=== PATIENT | male | born 1930 | race Caucasian/White ===

== ENCOUNTER 2019-04-15 10:15 | Inpatient (IN) ==
[2019-04-15] MEDS ORDERED: methylPREDNISolone 125 MG/2 ML VIAL IVP ONE (10:26)
[2019-04-15] MEDS ORDERED: 0.9 % Sodium Chloride 1,000 ML IVC ONE (10:26)
[2019-04-15] MEDS ORDERED: Ondansetron 4 MG/2 ML VIAL IVP ONE (10:26)
[2019-04-15] MEDS ORDERED: Pantoprazole 40 MG VIAL IVP ONE (10:26)
[2019-04-15 10:53] LABS: Prothrombin Time 11.3 Seconds (9.4-12.1)
[2019-04-15 10:59] LABS: Activated Partial Thrombo Time 34.7 Seconds (26.0-36.0)
[2019-04-15 11:02] LABS: Basophils # 0.1 K/mcL (0.0-0.2); Basophils % 0.3 %; Eosinophils # 0.1 K/mcL (0.0-0.6); Eosinophils % 0.7 %; Hematocrit 38.1 % (37.5-50.1); Immature Granulocytes % 0.3 % (0-4); Lymphocytes # 1.4 K/mcL (0.6-4.6); Lymphocytes % 7.9 %; Mean Corpuscular HGB Conc 31.5 g/dL (31.6-35.5); Mean Corpuscular Hemoglobin 30.5 pg (28.0-33.3); Mean Corpuscular Volume 96.7 fL (83.0-100.0); Mean Platelet Volume 10.9 fL (9.4-12.4); Monocytes # 1.2 K/mcL (0.0-1.3); Monocytes % 6.8 %; Neutrophils # 14.8 K/mcL (1.6-8.9); Platelet Count 213 K/mcL (140-400); Red Blood Count 3.94 M/mcL (4.19-5.50); Red Cell Distribution Width 16.5 % (11.5-14.5); White Blood Count 17.6 K/mcL (4.3-11.1)
[2019-04-15 11:07] LABS: Bilirubin,Urine Negative (Negative); Blood,Urine Trace (Negative); Clarity,Urine Cloudy (Clear); Color,Urine Yellow (Yellow); Glucose,Urine (UA) Normal (Normal); Ketones,Urine Negative (Negative); Leukocyte Esterase,Urine Large (Negative); Nitrite,Urine Negative (Negative); Protein,Urine 30 mg/dL (Neg-Trace); Specific Gravity,Urine 1.019 (1.010-1.025); Urobilinogen,Urine Normal (Normal)
[2019-04-15 11:13] LABS: Albumin 3.4 g/dL (3.5-5.7); Bilirubin,Direct 0.2 mg/dL (0.0-0.2); Bilirubin,Indirect 0.2 mg/dL (0.0-1.0); Bilirubin,Total 0.4 mg/dL (0.3-1.0); Calcium 9.6 mg/dL (8.6-10.3); Globulin 3.5 g/dL (2.4-3.5); Potassium 4.6 mEq/L (3.5-5.1); Total Protein 6.9 g/dL (6.4-8.9)
[2019-04-15 11:14] LABS: Troponin I 0.03 ng/mL (< 0.04)
[2019-04-15 11:27] LABS: Squamous Epithelial Cell,Urine Few per lpf (None-Few); WBC,Urine 30-50 per hpf (0-3)
[2019-04-15] MEDS ORDERED: cefTRIAXone 1,000 MG in Water for inj. (sterile) 10 ML IVP ONE (11:37)
[2019-04-15] MEDS ORDERED: Azithromycin 500 MG in 0.9 % Sodium Chloride 250 ML IVPB ONE (11:37)
[2019-04-15 11:46] LABS: Amorphous Sediment,Urine Few per hpf (Few); Bacteria,Urine Many per hpf (None-Few); RBC,Urine 0-3 per hpf (0-3)
[2019-04-15] MEDS ORDERED: MetroNIDAZOLE 500 MG/100 ML 500 MG/100 ML BAG IVPB ONE (12:10)
[2019-04-15] MEDS ORDERED: Ringers Solution, Lactated 1,000 ML IVC SCH (12:30)
[2019-04-15] MEDS ORDERED: Ondansetron 4 MG/2 ML VIAL IVP PRN (12:30)
[2019-04-15] MEDS ORDERED: Acetaminophen 325 MG TABLET PO PRN (14:59)
[2019-04-15 15:13] LABS: Hematocrit 35.8 % (37.5-50.1); Hemoglobin 11.2 g/dL (12.9-16.9)
[2019-04-15] MEDS: Pantoprazole 40 MG VIAL IVP SCH (16:10)
[2019-04-15] MEDS: Piperacillin/Tazobactam 3.375 GM in 0.9 % Sodium Chloride Mini Bag 100 ML IVPB SCH (16:10)
[2019-04-15] MEDS: QUEtiapine Fumarate 25 MG TABLET PO SCH (21:59)
[2019-04-15] MEDS: Melatonin 3 MG TABLET PO SCH (22:01)
[2019-04-15] MEDS: Budesonide/Formoterol 160/4.5 1 PUFF INH IH SCH ×3 (22:18→22:31)
[2019-04-16] MEDS: Piperacillin/Tazobactam 3.375 GM in 0.9 % Sodium Chloride Mini Bag 100 ML IVPB SCH ×3 (00:43→17:32)
[2019-04-16] MEDS: Pantoprazole 40 MG VIAL IVP SCH ×2 (05:44→17:32)
[2019-04-16] MEDS: Budesonide/Formoterol 160/4.5 1 PUFF INH IH SCH ×2 (07:30→19:42)
[2019-04-16] MEDS: Tiotropium 18 MCG inhalation IH SCH (07:30)
[2019-04-16] MEDS: Multivit/Ca/Min/Fe/FA 1 TAB TABLET PO SCH (08:37)
[2019-04-16] MEDS: QUEtiapine Fumarate 25 MG TABLET PO SCH ×2 (08:37→22:22)
[2019-04-16] MEDS: amLODIPine 5 MG TABLET PO SCH (08:37)
[2019-04-16] MEDS ORDERED: SAW PO SCH (09:00)
[2019-04-16] MEDS ORDERED: LYC PO SCH (09:00)
[2019-04-16] MEDS ORDERED: [UNRECOGNIZED DRUG - OTHER] PO SCH (09:00)
[2019-04-16] MEDS ORDERED: PYG PO SCH (09:00)
[2019-04-16] MEDS ORDERED: SOD SEL PO SCH (09:00)
[2019-04-16] MEDS ORDERED: VIT E PO SCH (09:00)
[2019-04-16] MEDS ORDERED: BETA PO SCH (09:00)
[2019-04-16 11:37] LABS: Basophils % 0.2 %; Hematocrit 33.7 % (37.5-50.1); Hemoglobin 10.4 g/dL (12.9-16.9); Immature Granulocytes % 0.4 % (0-4); Lymphocytes # 1.7 K/mcL (0.6-4.6); Lymphocytes % 8.5 %; Mean Corpuscular HGB Conc 30.9 g/dL (31.6-35.5); Mean Corpuscular Hemoglobin 29.7 pg (28.0-33.3); Mean Corpuscular Volume 96.3 fL (83.0-100.0); Mean Platelet Volume 11.2 fL (9.4-12.4); Monocytes # 0.5 K/mcL (0.0-1.3); Monocytes % 2.6 %; Neutrophils # 17.5 K/mcL (1.6-8.9); Platelet Count 188 K/mcL (140-400); Red Cell Distribution Width 16.4 % (11.5-14.5); Segmented Neutrophils % 88.3 %; White Blood Count 19.8 K/mcL (4.3-11.1)
[2019-04-16 12:16] LABS: Calcium 8.9 mg/dL (8.6-10.3); Potassium 4.9 mEq/L (3.5-5.1)
[2019-04-16] MEDS: Azithromycin 500 MG in 0.9 % Sodium Chloride 250 ML IVPB SCH (12:52)
[2019-04-16] MEDS ORDERED: *HR* FentaNYL (PF) 100 MCG/2 ML VIAL ONE (15:23)
[2019-04-16] MEDS ORDERED: *HR* Midazolam HCl 5 MG/5 ML VIAL IVP ONE ×2 (15:24→15:44)
[2019-04-16] MEDS ORDERED: Tetracaine/Benzocaine/Butamben 1 SPRAY AEROSOL MM ONE (15:44)
[2019-04-16] MEDS ORDERED: *HR* FentaNYL (PF) 100 MCG/2 ML VIAL IVP ONE (15:44)
[2019-04-16] MEDS ORDERED: *HR* EPINEPHrine 1 MG/10 ML SYRINGE INTRATRACH PRN (16:28)
[2019-04-16] MEDS: Mirtazapine 15 MG TABLET PO SCH (22:22)
[2019-04-16] MEDS: Melatonin 3 MG TABLET PO SCH (22:22)
[2019-04-16] MEDS: Sucralfate 1 GM TABLET PO SCH (22:30)
[2019-04-16 22:48] LABS: Adenovirus Not Detected (Not Detect); Bordetella Pertussis Not Detected (Not Detect); Chlamydophila pneumoniae Not Detected (Not Detect); Coronavirus 229E Not Detected (Not Detect); Coronavirus HKU1 Not Detected (Not Detect); Coronavirus NL63 Not Detected (Not Detect); Coronavirus OC43 Not Detected (Not Detect); Human Metapneumovirus Not Detected (Not Detect); Human Rhinovirus/Enterovirus Not Detected (Not Detect); Influenza A Subtype 2009 H1 Not Detected (Not Detect); Influenza B Not Detected (Not Detect); Mycoplasma pneumoniae Not Detected (Not Detect); Parainfluenza Virus 1 Not Detected (Not Detect); Parainfluenza Virus 2 Not Detected (Not Detect); Parainfluenza Virus 3 Not Detected (Not Detect); Parainfluenza Virus 4 Not Detected (Not Detect); Respiratory Syncytial Virus Not Detected (Not Detect)
[2019-04-17] MEDS: Piperacillin/Tazobactam 3.375 GM in 0.9 % Sodium Chloride Mini Bag 100 ML IVPB SCH ×3 (00:48→17:21)
[2019-04-17 04:45] LABS: Hematocrit 31.7 % (37.5-50.1); Hemoglobin 10.1 g/dL (12.9-16.9); Mean Corpuscular HGB Conc 31.9 g/dL (31.6-35.5); Mean Corpuscular Hemoglobin 30.8 pg (28.0-33.3); Mean Corpuscular Volume 96.6 fL (83.0-100.0); Platelet Count 179 K/mcL (140-400); Red Blood Count 3.28 M/mcL (4.19-5.50); Red Cell Distribution Width 16.1 % (11.5-14.5); White Blood Count 16.3 K/mcL (4.3-11.1)
[2019-04-17 05:07] LABS: Calcium 8.3 mg/dL (8.6-10.3)
[2019-04-17] MEDS: Pantoprazole 40 MG VIAL IVP SCH ×2 (05:37→17:22)
[2019-04-17] MEDS: Budesonide/Formoterol 160/4.5 1 PUFF INH IH SCH ×2 (07:25→22:09)
[2019-04-17] MEDS: Tiotropium 18 MCG inhalation IH SCH (07:27)
[2019-04-17] MEDS: QUEtiapine Fumarate 25 MG TABLET PO SCH ×2 (07:59→20:41)
[2019-04-17] MEDS: Sucralfate 1 GM TABLET PO SCH ×4 (07:59→20:41)
[2019-04-17] MEDS: Multivit/Ca/Min/Fe/FA 1 TAB TABLET PO SCH (07:59)
[2019-04-17] MEDS: amLODIPine 5 MG TABLET PO SCH (07:59)
[2019-04-17] MEDS: Azithromycin 500 MG in 0.9 % Sodium Chloride 250 ML IVPB SCH (13:00)
[2019-04-17] MEDS ORDERED: Haloperidol Lactate 5 MG/ML VIAL IVP ONE (14:06)
[2019-04-17] MEDS ORDERED: *HR* LORazepam 2 MG/ML VIAL IVP ONE (14:34)
[2019-04-17] MEDS ORDERED: NON-FORMULARY MEDICATION 1 EACH EACH (Acetaminophen [Tylenol 8 Hour] 650 MG) PO PRN (14:34)
[2019-04-17] MEDS: Mirtazapine 15 MG TABLET PO SCH (20:41)
[2019-04-17] MEDS: Melatonin 3 MG TABLET PO SCH (20:41)
[2019-04-17] MEDS ORDERED: MICONAZOLE NITRATE APPL TP SCH (21:00)
[2019-04-17] MEDS: Nystatin POWDER 30 GM BOTTLE TP SCH (23:31)
[2019-04-18] MEDS: Piperacillin/Tazobactam 3.375 GM in 0.9 % Sodium Chloride Mini Bag 100 ML IVPB SCH ×3 (00:27→17:38)
[2019-04-18] MEDS: Pantoprazole 40 MG VIAL IVP SCH ×2 (05:57→17:37)
[2019-04-18 07:02] LABS: Hematocrit 32.2 % (37.5-50.1); Hemoglobin 10.4 g/dL (12.9-16.9); Mean Corpuscular HGB Conc 32.3 g/dL (31.6-35.5); Mean Corpuscular Hemoglobin 30.7 pg (28.0-33.3); Mean Platelet Volume 11.1 fL (9.4-12.4); Platelet Count 185 K/mcL (140-400); Red Blood Count 3.39 M/mcL (4.19-5.50); Red Cell Distribution Width 15.9 % (11.5-14.5); White Blood Count 10.5 K/mcL (4.3-11.1)
[2019-04-18 07:20] LABS: Calcium 8.2 mg/dL (8.6-10.3)
[2019-04-18] MEDS ORDERED: NON-FORMULARY MEDICATION 1 EACH EACH (Multivitamin [One Daily Essential] 1 TAB) PO SCH (08:00)
[2019-04-18] MEDS: QUEtiapine Fumarate 25 MG TABLET PO SCH ×2 (10:08→20:06)
[2019-04-18] MEDS: Multivit/Ca/Min/Fe/FA 1 TAB TABLET PO SCH (10:08)
[2019-04-18] MEDS: Aspirin Enteric Coated 81 MG Tablet PO SCH (10:08)
[2019-04-18] MEDS: Sucralfate 1 GM TABLET PO SCH ×4 (10:08→21:04)
[2019-04-18] MEDS: amLODIPine 5 MG TABLET PO SCH (10:08)
[2019-04-18] MEDS: Nystatin POWDER 30 GM BOTTLE TP SCH ×2 (10:16→20:12)
[2019-04-18] MEDS: Tiotropium 18 MCG inhalation IH SCH (10:18)
[2019-04-18] MEDS: Budesonide/Formoterol 160/4.5 1 PUFF INH IH SCH ×2 (10:18→20:21)
[2019-04-18] MEDS: Azithromycin 500 MG in 0.9 % Sodium Chloride 250 ML IVPB SCH (13:27)
[2019-04-18] MEDS: Melatonin 3 MG TABLET PO SCH (20:06)
[2019-04-18] MEDS: Mirtazapine 15 MG TABLET PO SCH (20:06)
[2019-04-18] MEDS: *HR* LORazepam 1 MG TABLET PO PRN (21:04)
[2019-04-19] MEDS: Piperacillin/Tazobactam 3.375 GM in 0.9 % Sodium Chloride Mini Bag 100 ML IVPB SCH ×3 (00:16→16:17)
[2019-04-19] MEDS: Pantoprazole 40 MG VIAL IVP SCH ×2 (05:36→16:18)
[2019-04-19 06:32] LABS: Hematocrit 32.8 % (37.5-50.1); Hemoglobin 10.7 g/dL (12.9-16.9); Mean Corpuscular HGB Conc 32.6 g/dL (31.6-35.5); Mean Corpuscular Hemoglobin 30.9 pg (28.0-33.3); Mean Corpuscular Volume 94.8 fL (83.0-100.0); Mean Platelet Volume 10.4 fL (9.4-12.4); Platelet Count 170 K/mcL (140-400); Red Blood Count 3.46 M/mcL (4.19-5.50); Red Cell Distribution Width 15.9 % (11.5-14.5); White Blood Count 10.1 K/mcL (4.3-11.1)
[2019-04-19 07:06] LABS: Calcium 8.2 mg/dL (8.6-10.3); Potassium 3.8 mEq/L (3.5-5.1)
[2019-04-19] MEDS: amLODIPine 5 MG TABLET PO SCH (08:05)
[2019-04-19] MEDS: Multivit/Ca/Min/Fe/FA 1 TAB TABLET PO SCH (08:05)
[2019-04-19] MEDS: QUEtiapine Fumarate 25 MG TABLET PO SCH ×2 (08:05→21:56)
[2019-04-19] MEDS: Aspirin Enteric Coated 81 MG Tablet PO SCH (08:05)
[2019-04-19] MEDS: Sucralfate 1 GM TABLET PO SCH ×4 (08:05→22:07)
[2019-04-19] MEDS: Budesonide/Formoterol 160/4.5 1 PUFF INH IH SCH ×2 (10:24→20:17)
[2019-04-19] MEDS: Tiotropium 18 MCG inhalation IH SCH (10:25)
[2019-04-19] MEDS: Nystatin POWDER 30 GM BOTTLE TP SCH ×2 (12:58→21:53)
[2019-04-19] MEDS: Azithromycin 500 MG in 0.9 % Sodium Chloride 250 ML IVPB SCH (12:58)
[2019-04-19] MEDS: Mirtazapine 15 MG TABLET PO SCH (21:51)
[2019-04-19] MEDS: Melatonin 3 MG TABLET PO SCH (21:55)
[2019-04-20] MEDS: Piperacillin/Tazobactam 3.375 GM in 0.9 % Sodium Chloride Mini Bag 100 ML IVPB SCH ×2 (00:14→08:04)
[2019-04-20] MEDS: *HR* LORazepam 1 MG TABLET PO PRN (00:18)
[2019-04-20 01:43] LABS: Hematocrit 35.9 % (37.5-50.1); Hemoglobin 11.3 g/dL (12.9-16.9); Mean Corpuscular HGB Conc 31.5 g/dL (31.6-35.5); Mean Corpuscular Hemoglobin 29.8 pg (28.0-33.3); Mean Corpuscular Volume 94.7 fL (83.0-100.0); Mean Platelet Volume 11.2 fL (9.4-12.4); Platelet Count 170 K/mcL (140-400); Red Blood Count 3.79 M/mcL (4.19-5.50); Red Cell Distribution Width 15.9 % (11.5-14.5)
[2019-04-20 02:00] LABS: Calcium 8.5 mg/dL (8.6-10.3); Potassium 3.5 mEq/L (3.5-5.1)
[2019-04-20] MEDS: Pantoprazole 40 MG VIAL IVP SCH (05:44)
[2019-04-20] MEDS: Budesonide/Formoterol 160/4.5 1 PUFF INH IH SCH ×2 (07:46→19:27)
[2019-04-20] MEDS: Tiotropium 18 MCG inhalation IH SCH (07:47)
[2019-04-20] MEDS: Multivit/Ca/Min/Fe/FA 1 TAB TABLET PO SCH (07:53)
[2019-04-20] MEDS: QUEtiapine Fumarate 25 MG TABLET PO SCH ×2 (07:53→21:03)
[2019-04-20] MEDS: Aspirin Enteric Coated 81 MG Tablet PO SCH (07:53)
[2019-04-20] MEDS: amLODIPine 5 MG TABLET PO SCH (07:53)
[2019-04-20] MEDS: Sucralfate 1 GM TABLET PO SCH ×4 (07:53→21:03)
[2019-04-20] MEDS: Nystatin POWDER 30 GM BOTTLE TP SCH ×2 (07:54→21:03)
[2019-04-20] MEDS: Azithromycin 500 MG in 0.9 % Sodium Chloride 250 ML IVPB SCH (12:11)
[2019-04-20] MEDS: Amoxicillin/Clavulanate 500 MG TABLET PO SCH (16:50)
[2019-04-20] MEDS: D5% in 0.45% NACL w KCl 20 MEQ/1,000 ML MLS IVC SCH (17:56)
[2019-04-20] MEDS: Melatonin 3 MG TABLET PO SCH (21:03)
[2019-04-20] MEDS: Mirtazapine 15 MG TABLET PO SCH (21:03)
[2019-04-21] MEDS: D5% in 0.45% NACL w KCl 20 MEQ/1,000 ML MLS IVC SCH (03:41)
[2019-04-21 05:36] LABS: Hematocrit 35.5 % (37.5-50.1); Hemoglobin 11.5 g/dL (12.9-16.9); Mean Corpuscular HGB Conc 32.4 g/dL (31.6-35.5); Mean Corpuscular Hemoglobin 30.4 pg (28.0-33.3); Mean Corpuscular Volume 93.9 fL (83.0-100.0); Mean Platelet Volume 11.5 fL (9.4-12.4); Platelet Count 153 K/mcL (140-400); Red Blood Count 3.78 M/mcL (4.19-5.50); Red Cell Distribution Width 15.8 % (11.5-14.5); White Blood Count 11.3 K/mcL (4.3-11.1)
[2019-04-21 05:56] LABS: BUN/Creatinine Ratio 12 (6-26); Blood Urea Nitrogen 16 mg/dL (8-23); Calcium 8.4 mg/dL (8.6-10.3); Carbon Dioxide 23 mEq/L (23-29); Chloride 111 mEq/L (98-107); Glucose 194 mg/dL (70-105); Osmolality,Calculated 296 (280-300); Potassium 3.7 mEq/L (3.5-5.1); Sodium 140 mEq/L (136-145); eGFR For African Americans > 60 (> 60); eGFR For Non-African Americans 51 (> 60)
[2019-04-21 06:56] VITALS: BP 180/80
[2019-04-21] MEDS: Tiotropium 18 MCG inhalation IH SCH (07:42)
[2019-04-21] MEDS: Budesonide/Formoterol 160/4.5 1 PUFF INH IH SCH (07:42)
[2019-04-21] MEDS: Nystatin POWDER 30 GM BOTTLE TP SCH (09:43)
[2019-04-21] MEDS: Amoxicillin/Clavulanate 500 MG TABLET PO SCH (09:43)
[2019-04-21] MEDS: Sucralfate 1 GM TABLET PO SCH (09:43)
[2019-04-21] MEDS: amLODIPine 5 MG TABLET PO SCH (09:43)
[2019-04-21] MEDS: Aspirin Enteric Coated 81 MG Tablet PO SCH (09:43)
[2019-04-21] MEDS: Multivit/Ca/Min/Fe/FA 1 TAB TABLET PO SCH (09:43)
[2019-04-21] MEDS: QUEtiapine Fumarate 25 MG TABLET PO SCH (09:43)
== END 2019-04-21 10:44 | DRG 871 ==
LOC: 3BNU 10:15 → EMEROOARM 10:15 → 3BNU 13:30
PROVIDERS: ADMIT Internal Medicine; ATTEND Internal Medicine
PROC: ENDOEBX (2019-04-16 14:00)

== ENCOUNTER 2019-04-24 14:20 | Inpatient (IN) ==
[2019-04-24] MEDS ORDERED: Isovue-370 500 ML BOTTLE IVP ONE (14:45)
[2019-04-24 15:29] LABS: Basophils # 0.1 K/mcL (0.0-0.2); Basophils % 0.3 %; Eosinophils % 0.1 %; Hematocrit 38.5 % (37.5-50.1); Hemoglobin 12.3 g/dL (12.9-16.9); Immature Granulocytes % 0.4 % (0-4); Lymphocytes # 1.5 K/mcL (0.6-4.6); Lymphocytes % 6.9 %; Mean Corpuscular HGB Conc 31.9 g/dL (31.6-35.5); Mean Corpuscular Hemoglobin 30.1 pg (28.0-33.3); Mean Corpuscular Volume 94.4 fL (83.0-100.0); Monocytes # 1.6 K/mcL (0.0-1.3); Monocytes % 7.7 %; Neutrophils # 17.9 K/mcL (1.6-8.9); Platelet Count 209 K/mcL (140-400); Red Blood Count 4.08 M/mcL (4.19-5.50); Red Cell Distribution Width 16.6 % (11.5-14.5); Segmented Neutrophils % 84.6 %
[2019-04-24 15:31] LABS: Calcium 9.9 mg/dL (8.6-10.3); Potassium 4.3 mEq/L (3.5-5.1)
[2019-04-24] MEDS ORDERED: 0.9 % Sodium Chloride 1,000 ML IVC ONE (15:34)
[2019-04-24 15:35] LABS: White Blood Count 21.2 K/mcL (4.3-11.1)
[2019-04-24] MEDS ORDERED: cefTRIAXone 1,000 MG in Water for inj. (sterile) 10 ML IVP ONE (18:34)
[2019-04-24] MEDS ORDERED: Naloxone 0.4 MG/ML INJ IVP PRN (19:37)
[2019-04-24 19:59] LABS: Phosphorous 3.2 mg/dL (2.7-4.5)
[2019-04-24] MEDS ORDERED: QUEtiapine Fumarate 25 MG TABLET PO SCH (20:00)
[2019-04-24] MEDS ORDERED: Melatonin 3 MG TABLET PO SCH (20:00)
[2019-04-24] MEDS ORDERED: Mirtazapine 15 MG TABLET PO SCH (20:00)
[2019-04-24] MEDS ORDERED: 0.9 % Sodium Chloride 1,000 ML IVC SCH (20:15)
[2019-04-24] MEDS ORDERED: Ipratropium/Albuterol Neb 3 ML IH PRN (21:32)
[2019-04-24] MEDS ORDERED: *HR* LORazepam 1 MG TABLET PO PRN (21:34)
[2019-04-24] MEDS ORDERED: Sucralfate 1 GM TABLET PO SCH (22:00)
[2019-04-25] MEDS ORDERED: *HR* LORazepam 1 MG TABLET PO PRN (00:37)
[2019-04-25] MEDS ORDERED: 0.9 % Sodium Chloride 1,000 ML IVC SCH (00:45)
[2019-04-25] MEDS: Piperacillin/Tazobactam 3.375 GM in 0.9 % Sodium Chloride Mini Bag 100 ML IVPB SCH ×3 (03:02→16:21)
[2019-04-25] MEDS: Mirtazapine 15 MG TABLET PO SCH ×2 (03:03→22:29)
[2019-04-25] MEDS: Melatonin 3 MG TABLET PO SCH ×2 (03:04→22:29)
[2019-04-25] MEDS: Sucralfate 1 GM TABLET PO SCH ×5 (03:09→22:30)
[2019-04-25] MEDS: QUEtiapine Fumarate 25 MG TABLET PO SCH ×3 (03:17→22:30)
[2019-04-25] MEDS ORDERED: *HR* LORazepam 2 MG/ML VIAL IVP ONE (03:53)
[2019-04-25] MEDS: *HR* Heparin 5,000 UNIT/ML VIAL SQ SCH ×2 (06:10→16:19)
[2019-04-25] MEDS: amLODIPine 5 MG TABLET PO SCH (09:24)
[2019-04-25] MEDS: Budesonide/Formoterol 160/4.5 1 PUFF INH IH SCH (09:24)
[2019-04-25 10:46] LABS: Basophils # 0.1 K/mcL (0.0-0.2); Basophils % 0.7 %; Eosinophils # 0.2 K/mcL (0.0-0.6); Eosinophils % 1.2 %; Hematocrit 33.1 % (37.5-50.1); Immature Granulocytes % 0.3 % (0-4); Lymphocytes # 1.8 K/mcL (0.6-4.6); Lymphocytes % 11.6 %; Mean Corpuscular Hemoglobin 30.4 pg (28.0-33.3); Mean Corpuscular Volume 94.8 fL (83.0-100.0); Mean Platelet Volume 11.3 fL (9.4-12.4); Monocytes # 1.1 K/mcL (0.0-1.3); Monocytes % 7.3 %; Platelet Count 217 K/mcL (140-400); Red Blood Count 3.49 M/mcL (4.19-5.50); Red Cell Distribution Width 16.6 % (11.5-14.5); Segmented Neutrophils % 78.9 %; White Blood Count 15.2 K/mcL (4.3-11.1)
[2019-04-25 10:47] LABS: Hemoglobin 10.6 g/dL (12.9-16.9)
[2019-04-25 10:55] LABS: INR 1.1
[2019-04-25 10:57] LABS: Activated Partial Thrombo Time 36.6 Seconds (26.0-36.0)
[2019-04-25 11:05] LABS: Alanine Aminotransferase 11 Units/L (7-52); Albumin 2.9 g/dL (3.5-5.7); Alkaline Phosphatase 74 Units/L (34-104); Aspartate Amino Transferase 12 Units/L (13-39); BUN/Creatinine Ratio 13 (6-26); Bilirubin,Total 0.5 mg/dL (0.3-1.0); Blood Urea Nitrogen 17 mg/dL (8-23); Carbon Dioxide 22 mEq/L (23-29); Chloride 115 mEq/L (98-107); Globulin 2.9 g/dL (2.4-3.5); Glucose 82 mg/dL (70-105); Magnesium 1.6 mg/dL (1.6-2.6); Osmolality,Calculated 295 (280-300); Potassium 3.6 mEq/L (3.5-5.1); Sodium 142 mEq/L (136-145); Total Protein 5.8 g/dL (6.4-8.9); eGFR For African Americans > 60 (> 60); eGFR For Non-African Americans 51 (> 60)
[2019-04-25] MEDS: Aspirin Enteric Coated 81 MG Tablet PO SCH (16:20)
[2019-04-25] MEDS ORDERED: Acetaminophen 325 MG TABLET PO PRN (16:41)
[2019-04-26 01:21] LABS: Basophils # 0.1 K/mcL (0.0-0.2); Basophils % 0.5 %; Eosinophils # 0.3 K/mcL (0.0-0.6); Eosinophils % 2.2 %; Hematocrit 31.4 % (37.5-50.1); Hemoglobin 10.1 g/dL (12.9-16.9); Immature Granulocytes % 0.3 % (0-4); Lymphocytes # 1.6 K/mcL (0.6-4.6); Lymphocytes % 12.8 %; Mean Corpuscular HGB Conc 32.2 g/dL (31.6-35.5); Mean Corpuscular Hemoglobin 30.6 pg (28.0-33.3); Mean Corpuscular Volume 95.2 fL (83.0-100.0); Mean Platelet Volume 11.2 fL (9.4-12.4); Neutrophils # 9.6 K/mcL (1.6-8.9); Platelet Count 235 K/mcL (140-400); Red Cell Distribution Width 16.3 % (11.5-14.5); Segmented Neutrophils % 76.2 %; White Blood Count 12.6 K/mcL (4.3-11.1)
[2019-04-26 01:39] LABS: Calcium 8.9 mg/dL (8.6-10.3); Potassium 3.5 mEq/L (3.5-5.1)
[2019-04-26] MEDS: *HR* Heparin 5,000 UNIT/ML VIAL SQ SCH ×2 (07:09→16:24)
[2019-04-26] MEDS: Tiotropium 18 MCG inhalation IH SCH (07:41)
[2019-04-26] MEDS: Budesonide/Formoterol 160/4.5 1 PUFF INH IH SCH (07:41)
[2019-04-26] MEDS: Sucralfate 1 GM TABLET PO SCH ×4 (08:24→23:09)
[2019-04-26] MEDS: QUEtiapine Fumarate 25 MG TABLET PO SCH ×2 (08:25→20:39)
[2019-04-26] MEDS: amLODIPine 5 MG TABLET PO SCH (08:25)
[2019-04-26] MEDS: Piperacillin/Tazobactam 3.375 GM in 0.9 % Sodium Chloride Mini Bag 100 ML IVPB SCH ×4 (09:33→23:09)
[2019-04-26] MEDS: Budesonide Neb 0.5 MG/2 ML IH SCH ×2 (10:09→22:08)
[2019-04-26] MEDS: Aspirin Enteric Coated 81 MG Tablet PO SCH (16:24)
[2019-04-26] MEDS: Melatonin 3 MG TABLET PO SCH (20:38)
[2019-04-26] MEDS: Mirtazapine 15 MG TABLET PO SCH (20:39)
[2019-04-27 04:55] LABS: Basophils # 0.1 K/mcL (0.0-0.2); Basophils % 0.7 %; Eosinophils # 0.4 K/mcL (0.0-0.6); Eosinophils % 3.9 %; Hemoglobin 9.7 g/dL (12.9-16.9); Immature Granulocytes % 0.3 % (0-4); Lymphocytes % 19.8 %; Mean Corpuscular HGB Conc 31.3 g/dL (31.6-35.5); Mean Corpuscular Hemoglobin 29.5 pg (28.0-33.3); Mean Corpuscular Volume 94.2 fL (83.0-100.0); Mean Platelet Volume 11.2 fL (9.4-12.4); Monocytes # 0.9 K/mcL (0.0-1.3); Monocytes % 8.4 %; Neutrophils # 6.7 K/mcL (1.6-8.9); Platelet Count 284 K/mcL (140-400); Red Blood Count 3.29 M/mcL (4.19-5.50); Red Cell Distribution Width 16.2 % (11.5-14.5); Segmented Neutrophils % 66.9 %; White Blood Count 10.1 K/mcL (4.3-11.1)
[2019-04-27 05:40] LABS: Calcium 8.8 mg/dL (8.6-10.3); Potassium 3.5 mEq/L (3.5-5.1)
[2019-04-27] MEDS: *HR* Heparin 5,000 UNIT/ML VIAL SQ SCH (05:59)
[2019-04-27] MEDS ORDERED: D5% in 0.45% NACL 1,000 ML IVC SCH (07:15)
[2019-04-27] MEDS: Budesonide Neb 0.5 MG/2 ML IH SCH (07:47)
[2019-04-27] MEDS: Tiotropium 18 MCG inhalation IH SCH (07:48)
[2019-04-27] MEDS: Piperacillin/Tazobactam 3.375 GM in 0.9 % Sodium Chloride Mini Bag 100 ML IVPB SCH (08:09)
[2019-04-27] MEDS: amLODIPine 5 MG TABLET PO SCH (08:10)
[2019-04-27] MEDS: Sucralfate 1 GM TABLET PO SCH (08:10)
[2019-04-27] MEDS: QUEtiapine Fumarate 25 MG TABLET PO SCH (08:29)
[2019-04-27 10:07] VITALS: BP 158/80
[2019-04-27] MEDS ORDERED: Aminoglycoside Consult 1 EACH MC ONE (11:03)
== END 2019-04-27 11:04 ==
LOC: EMEROOARM 14:20 → 3ANU 14:20 → SUATTDRO 19:38 → 3ANU 20:32
PROVIDERS: ADMIT Student in an Organized Health Care Education/Training Program; ATTEND Family Medicine